=== PATIENT | female | born 2000 ===

== ENCOUNTER 2024-07-10 06:36 | Outpatient (REF) | payer OTHER, SELFPAY ==
--- NOTE | ~2024-07-10 | US_ITS ---
CLINICAL HISTORY: IRREGULAR PERIODS, DYSPAREUNIA US pelvis transabdominal and transvaginal Comparison: None Findings: Transabdominal scanning performed for overall anatomy. Transvaginal scanning performed for additional detail. Anteverted uterus is 6.5 cm length. Normal myometrium. Endometrium 13.9 mm thickness. Right ovary 3.1 x 2 x 1.8 cm. Left ovary 2.5 x 1.6 x 2 cm. Normal color Doppler of both ovaries. Trace free fluid within the cul-de-sac. IMPRESSION: 1. There is thickening of the endometrium. 2. There is trace pelvic free fluid. This document has been electronically signed by: Tesha Browne MD on 07/10/2024 14:20:52
== END 2024-07-10 06:37 | disposition home or self-care (01) ==
LOC: HO.UMASIMG 06:36
PROVIDERS: Visit Provider Nurse Practitioner Women's Health
DX: N92.6 Irregular menstruation, unspecified (principal); N94.12 Deep dyspareunia; N94.11 Superficial (introital) dyspareunia
CPT/HCPCS: 76830; 76856

== ENCOUNTER → 2024-07-10 09:00 | Outpatient (BNV) | payer OTHER, SELFPAY | PROVIDERS: Visit Provider Radiology Diagnostic Radiology | DX: N85.00 Endometrial hyperplasia, unspecified (principal) | CPT/HCPCS: 76830; 76856 ==